=== PATIENT | female | born 1945 | race Asian ===

== ENCOUNTER 2017-04-24 07:21 | Day surgery (SDC) | payer OTHER ==
[~2017-04-24] VITALS: Ht 149.9 cm; Wt 55.6 kg
[2017-04-24 08:32] VITALS: Ht 149.9 cm; Wt 55.6 kg
[2017-04-24] MEDS ORDERED: WELCHOL (08:45)
[2017-04-24] MEDS ORDERED: ALLOPURINOL (08:45)
[2017-04-24] MEDS ORDERED: JANUVIA (08:45)
[2017-04-24] MEDS ORDERED: ANASTROZOLE (08:45)
[2017-04-24] MEDS ORDERED: FOLIC ACID (08:45)
[2017-04-24] MEDS ORDERED: ATORVASTATIN (08:45)
[2017-04-24] MEDS ORDERED: MONTELUKAST (08:45)
[2017-04-24] MEDS ORDERED: ATENOLOL (08:45)
[2017-04-24] MEDS ORDERED: GLIPIZIDE (08:45)
[2017-04-24] MEDS ORDERED: BENAZEPRIL (08:45)
[2017-04-24] MEDS ORDERED: CLONIDINE (08:45)
[2017-04-24] MEDS ORDERED: SODIUM (08:45)
[2017-04-24] MEDS ORDERED: ACARBOSE (08:45)
[2017-04-24] MEDS ORDERED: ASPIRIN (08:45)
[2017-04-24] MEDS ORDERED: FENTAnyl 50 MCG/ML VIAL ONE (08:58)
[2017-04-24] MEDS ORDERED: MIDAZOLAM 1 MG/ML 2 ML INJ ONE (08:58)
[2017-04-24] MEDS ORDERED: PROPOFOL 20 ML ONE (08:58)
[2017-04-24 09:23] VITALS: BP 157/71; PULSE 80; RESP 23
--- NOTE | 2017-04-24 09:54 | OPPN ---
Date/Time of Note Date/Time of Note DATE: 04/24/17 TIME: 09:52 Operative Report Preoperative Diagnosis Colon cancer screening Postoperative Diagnosis Same Operation/Procedure Performed 3 diminutive polyp successfully removed, descending colon and a 20 cm Diverticular Internal hemorrhoids Anesthesia Type: MAC Estimated blood loss: none Transfusion Required: no Specimen: none Grafts/Implants: none Complications: no JOSE LOWERY MD Apr 24, 2017 09:53
[2017-04-24 10:15] VITALS: BP 167/77; PULSE 74; RESP 14
--- NOTE | 2017-04-24 11:18 | GILP ---
DATE OF PROCEDURE: 04/24/2017 PROCEDURE PERFORMED: Colonoscopy with removal of 3 polyps by cold biopsy forceps. SURGEON: Angel Mosher MD INDICATION: This 71-year-old female undergoing this procedure for colon cancer screening. Her stool for occult blood was positive. The risks of the procedure, related complication with anesthetic risks and alternatives discussed. An informed consent was obtained. DESCRIPTION OF PROCEDURE: The patient was brought to the GI lab, sedated by the anesthesiologist. After optimal sedation, digital examination done which was normal. Scope was passed with much ease into rectum, advanced slowly all the way into the cecum. Appendiceal orifice, IC valve identified. While coming out mucosa, thoroughly inspected. Diminutive 3 polyps, 2 in the descending colon and 1 at 20 cm successfully removed by Jumbo biopsy forceps. She had a diverticulosis left side of the colon. Internal hemorrhoids also identified. Rest of the colon appeared normal. There was some scattered stool. Clarity was good and preparation was good to adequate. IMPRESSION: 1. Internal hemorrhoids. 2. Diverticulosis. 3. Three diminutive polyps successfully removed by cold biopsy forceps as described. PLAN: Review histopathology. High-fiber diet and sitz bath. Dictated By: Angel Mosher MD /[email or web address] /Document#: [id number] ; Dr. Gen Kauffman
== END 2017-04-24 10:54 | disposition home or self-care (01) ==
LOC: GIL 07:21
PROVIDERS: ATTEND Internal Medicine Gastroenterology
DX: D12.4 Benign neoplasm of descending colon (principal); K57.90 Diverticulosis of intestine, part unspecified, without perforation or abscess without bleeding; K64.8 Other hemorrhoids; I10 Essential (primary) hypertension; E11.9 Type 2 diabetes mellitus without complications; E78.5 Hyperlipidemia, unspecified
CPT/HCPCS: 45380; 88305; J2250; J3010

== ENCOUNTER 2018-08-07 15:09 | Inpatient (IN) | END 2018-08-09 14:21 | disposition home or self-care (01) | DRG 639 ==